=== PATIENT | female | born 1945 | race Two or more races ===

== ENCOUNTER 2025-04-19 11:09 | Inpatient (IN) | payer OTHER, MEDICAID ==
[~2025-04-19] VITALS: Ht 157.5 cm; Wt 75.4 kg
[~2025-04-19 11:09] MED LIST: ALPR0.5T10 PO; ASCO100T4; ASCO250T13 PO; BENA5TAB9 PO; CHOL400C7; DIGO0.1262 PO; MAGN400T28 PO; MEC25T PO; METF-371 PO; METO25TA36 PO; MULTTAB5 PO; OMEG-20 PO; RANI-347 PO; SIMV80TA17 PO; WARF5TAB PO
--- NOTE | 2025-04-19 11:26 | ECG ---
[facility] Test Date: 2025-04-19 Test Time: 11:21:33 Pat Name: DOTTY VÁSQUEZ Department: ER Room: 0295T Gender: F High Density Finishing Operator: OLI : 1945 Requested By: ELIZABETH FAJARDO Order Number: [id number] Reading MD: Tyrese Diaz Measurements Intervals [place] Rate: 99 P: 41 NE: 133 QRS: -38 QRSD: 112 T: 107 QT: 343 QTc: 441 Interpretive Statements Sinus rhythm Incomplete right bundle branch block Abnormal R-wave progression, late transition LVH with IVCD, LAD and secondary repol abnrm Electronically Signed On 04-21-2025 19:26:34 PDT by Tyrese Diaz Please click the below link to view image of tracing.
[2025-04-19] MEDS: NITROGLYCERIN 0.4 MG SL TAB SL ONE (11:31)
[2025-04-19 12:00] LABS: Nucleated Red Blood Cells % 0.0 %
[2025-04-19 12:02] LABS: Hematocrit 31.9 % (36.0-46.0); Hemoglobin 10.8 g/dL (12.2-16.2); Mean Corpuscular Hemoglobin 36.1 pg (28.0-32.0); Mean Corpuscular Volume 106.7 fL (80.0-100.0)
--- NOTE | 2025-04-19 12:18 | DVH ---
CT HEAD WITHOUT CONTRAST Indication: dizzy, htn EXAM DATE: 04/19/2025 11:46 AM COMPARISON: None TECHNIQUE: CT of the head without intravenous contrast. RADIATION DOSE: CTDIvol: 50.58 mGy, DLP: 811.0 mGy*cm FINDINGS: There is no intracranial hemorrhage. There is no extra-axial fluid, mass, mass effect or midline shif t. The ventricles are midline and normal in size. Basilar cisterns are patent. There are mild periven tricular and subcortical white matter chronic microvascular ischemic changes. The paranasal sinuses and mastoids are well-pneumatized. Imaged portion of the orbits are unremarkabl e. IMPRESSION: No intracranial hemorrhage or mass effect. Mild chronic microvascular ischemic changes.
[2025-04-19 12:19] LABS: Alanine Aminotransferase 22 U/L (7-40); Alkaline Phosphatase 71 U/L (46-116); Anion Gap 10 (5-15); BUN/Creatinine Ratio 15.0 (10.0-20.0); Blood Urea Nitrogen 22 mg/dL (9-23); Carbon Dioxide 27 mmol/L (20-31); Chloride 100 mmol/L (98-107); Sodium 137 mmol/L (136-145); Total Protein 7.3 g/dL (5.7-8.2)
[2025-04-19 12:20] LABS: Albumin 4.7 g/dL (3.2-4.8)
--- NOTE | 2025-04-19 12:20 | ED.PDOC ---
HPI (NEURO) HPI Comments Harris: dizzy. HPI: Poor Historian. Past Medical History: Past Surgical History: HPI: 80y F who presents to the ED for chief complaint of dizziness. - pt states she has been having since earlier this AM - pt states she has history of HTN and states she has not taken her medications today but states she did take her taking her medications for her breast cancer (Ibrance) - pt states she went to urgent care yesterday and was told to come to the ED for further evaluation of her dizziness and for possible evaluation for mets of her breast cancer - pt states in the ED, she did have history of meclizine but has prescription that has been 6 years ago - pt in the ED, otherwise denies headache and denies any other symptoms at this time -pt in the ED, is otherwise alert and oriented x 4 and able to answer all q uestions - pt in the ED, has noted BP of 196/86, RR 18, 02 sat of 97% on room air, heart rate 97 Past Medical History: HTN, breast and lung cancer, DM, vertigo, CKD, AFIB Past Surgical History: breast cancer surgery, cholecystectomy, Social History: Denies ETOH, smoking, and drug use. Medications: digoxin, xarelto, benzapril, ibrance, metformin Allergies: nkda REVIEW OF SYSTEMS: CONSTITUTIONAL: Denies acute: fever, diaphoresis, chills, generalized weakness. HEAD: Denies acute: headache, photophobia Eyes: Denies acute: Double vision, vision loss, eye pain, eye discharge. EARS: Denies acute: tinnitus, hearing loss, ear discharge, ear pain, THROAT: Denies acute: sore throat, swelling, difficulty swallowing , pain with swallowing, change in voice. NECK: Denies acute: neck pain, neck swelling, stiff neck. HEART: Denies acute : chest pain, palpitations, LUNGS: Denies acute: SOB, wheezing, cough, hemoptysis ABDOMEN: Denies acute: abdominal pain, Nausea, Vomiting, diarrhea, melena , hematemesis, hematochezia SKIN: Denies acute: rash, redness, lesions, itchiness. EXTREMITIES: Denies acute: calf pain, numbness, tingling, weakness, denies pain in extremity. Denies acute: Low back pain. Neuro: Denies acute: focal neurological deficit, motor or sensory focal neurological deficit, tremors, seizure like activity, confusion, change in mental status, loss of bowel or bladder function, cauda equina like symptoms. : Denies acute: dysuria, hematuria, flank pain, increase in urinary frequency. PSYCH: Denies acute: hallucination, suicidal ideation, homicidal ideation. FEMALE: Denies acute: abnormal vaginal bleeding, foul odor, unusual discharge. PHYSICAL EXAM: General: ----no----acute distress, awake and alert. Head: normocephalic, atraumatic. Neck: supple, trachea is midline, no swelling. Throat: Normal phonation. Eyes:, no erythema, no purulent discharge, no proptosis, no icterus. Heart: regular rate, regular rhythm, no significant murmur appreciated. Lungs: no apparent respiratory distress, Able to speak in full sentences. No wheezing, no rhonchi, no crackles. No stridors Clear to auscultation bilaterally. Abdomen: non tender to palpation, non distended, soft, no guarding, no rebound, + bowel sounds. Neuro: Awake, Alert, oriented to name, self, situation, follows commands GCS=15. Speech is normal. Skin: no petechia, no purpura, no cyanosis, non-pale, not jaundice. Lower extremities: --no - Pitting edema no deformity, no focal swelling, no calf TTP. Makes eye contact. moves all four extremities. Face: no apparent facial droop. Ambulating in the ED independently. PERRLA, EOM-I CN 2-12 are grossly intact, No nystagmus. ED COURSE: DISCLAIMER: This medical document was created using an electronic medical record system with voice recognition software and computerized dictation system. Although this document has been carefully reviewed, there might still be some phonetic and typ ographical errors. Occasional wrong-word or "sound-alike" substitutions may have occurred due to the inherent limitations of voice recognition software. These areas are purely typographical due to imperfections of the software programs and do not reflect any compromise in the patient's medical care. Please read the chart carefully and recognize, using context, where these substitutions have occurred. Chief Complaint: Dizziness Time Seen by MD: 11:25 Primary Care Provider: SANDRITA Reyes Notes: Nurses Notes Information Source: Patient Mode of Arrival: Ambulatory Past Medical History PAST MEDICAL HISTORY: AFIB, Arthritis, DM, High Lipids, HTN Surgical History: BTL, Cholecystectomy LINE PALLETIZER History: No Pertinent LINE PALLETIZER History Family History Family History: No family hx of DM, No family hx of Stroke Social History Smoker: Non-Smoker Alcohol: Denies ETOH Use Drugs: Denies Drug Use Lives In: Home Was a procedure done? Was a procedure done?: No X-Ray, Labs, Meds, VS Vital Signs Date Time Temp Pulse Resp B/P (MAP) Pulse Ox O2 Delivery O2 Flow Rate FiO2 04/19/25 15:27 98.8 77 18 164/84 (110) 98 98.8 04/19/25 15:27 77 18 98 Room Air* 0 21 04/19/25 15:09 164/84 04/19/25 11:31 196/86 04/19/25 11:21 99 04/19/25 11:19 98.3 97 18 196/86 (122) 97 98.3 Lab Test 04/19/25 14:19 04/19/25 12:48 04/19/25 12:33 04/19/25 11:37 Range/Units Lactic Acid Level 3.1 *H 4.7 *H 0.4-2.0 mmol/L Troponin I High Sensitivity 11 10 9 </=34 ng/L Urine Color Light-yellow Yellow Urine Clarity Clear Clear Urine pH 5.5 5.0-9.0 Urine Specific [place] 1.012 1.001-1.035 Urine Protein Negative Negative Urine Ketones Negative Negative Urine Blood 1+ H Negative /uL Urine Nitrite Negative Negative Urine Bilirubin Negative Negative Urine Urobilinogen Normal Negative mg/dL Urine Leukocyte Esterase 2+ Negative /uL Urine RBC 1 0 - 4 /hpf Urine Microscopic WBC 13 H 0-5 /HPF Urine Squamous Epithelial Cells Few <5 /hpf Urine Bacteria None seen None Seen /hpf Urine Hyaline Casts Few 0 - 2 /lpf Urine Glucose Normal Normal mg/dL White Blood Count 3.2 L 4.4-10.8 10^3/uL Red Blood Count 2.98 L 4.0-5.20 10^6/uL Hemoglobin 10.8 L 12.2-16.2 g/dL Hematocrit 31.9 L 36.0-46.0 % Mean Corpuscular Volume 106.7 H 80.0-100.0 fL Mean Corpuscular Hemoglobin 36.1 H 28.0-32.0 pg Mean Corpuscular Hemoglobin Concent 33.8 32.0-36.0 g/dL Red Cell Distribution Width 14.1 11.8-14.3 % Platelet Count 316 140-450 10^3/uL Mean Platelet Volume 7.6 6.9-10.8 fL Neutrophils (%) (Auto) 75.7 37.0-80.0 % Lymphocytes (%) (Auto) 18.6 10.0-50.0 % Monocytes (%) (Auto) 3.6 0.0-12.0 % Eosinophils (%) (Auto) 1.7 0.0-7.0 % Basophils (%) (Auto) 0.4 0.0-2.0 % Neutrophils # (Auto) 2.4 1.6-8.6 10 ^3/uL Lymphocytes # (Auto) 0.6 0.4-5.4 10 ^3/uL Monocytes # (Auto) 0.1 0-1.3 10 ^3/uL Eosinophils # (Auto) 0.1 0-0.8 10 ^3/uL Basophils # (Auto) 0 0-0.2 10 ^3/uL Nucleated Red Blood Cells 0.0 % Sodium Level 137 136-145 mmol/L Potassium Level 5.3 H 3.5-5.1 mmol/L Chloride Level 100 98-107 mmol/L Carbon Dioxide Level 27 20-31 mmol/L Anion Gap 10 5-15 Blood Urea Nitrogen 22 9-23 mg/dL Creatinine 1.47 H 0.550-1.02 mg/dL Glomerular Filtration Rate Calc 36 >90 mL/min BUN/Creatinine Ratio 15.0 10.0-20.0 Serum Glucose 214 H 74-106 mg/dL Hemoglobin A1c 7.2 H <5.7 % A1C Calcium Level 10.5 H 8.7-10.4 mg/dL Total Bilirubin 0.3 0.2-1.0 mg/dL Aspartate Amino Transferase (AST) 23 13-40 U/L Alanine Aminotransferase (ALT) 22 7-40 U/L Alkaline Phosphatase 71 46-116 U/L Total Protein 7.3 5.7-8.2 g/dL Albumin 4.7 3.2-4.8 g/dL Test 04/19/25 11:16 Range/Units POC Glucose 227 H 70-106 mg/dl Current Medications Medications (Trade) Dose Ordered Sig/No Route Start Time Stop Time Status Last Admin Nitroglycerin (Ntrostat Sublingual) 0.4 mg ONCE ONCE SL 04/19/25 11:30 04/19/25 11:31 DC 04/19/25 11:31 Sodium Chloride 1,000 ml @ 1,000 mls/hr Q1H ONCE IV 04/19/25 12:45 04/19/25 13:44 DC 04/19/25 14:24 Ceftriaxone Sodium 50 ml @ 100 mls/hr ONCE ONCE IV 04/19/25 13:30 04/19/25 13:59 DC 04/19/25 15:08 [place] [id number] Ph: [phone] DIAGNOSTIC IMAGING Diagnostic Imaging Report : [id number] Signed PATIENT: CORI RUTHCCT: [id number] UNIT: [id number] : 1945 LOC: ER ROOM / BED: / AGE / SEX: 80 / F ADM STATUS: REG ER SERVICE 26 ORDERING PHYSICIAN: SANDRITA KAMINSKI DO PROCEDURE(s): HWOCT - HEAD WITHOUT CONTRAST REASON: dizzy, htn ORDER NUMBER(s): [id number], ACCESSION NUMBER(s): [id number] CT HEAD WITHOUT CONTRAST Indication: dizzy, htn EXAM DATE: 04/19/2025 11:46 AM COMPARISON: None TECHNIQUE: CT of the head without intravenous contrast. RADIATION DOSE: CTDIvol: 50.58 mGy, DLP: 811.0 mGy*cm FINDINGS: There is no intracranial hemorrhage. There is no extra-axial fluid, mass, mass effect or midline shift. The ventricles are midline and normal in size. Basilar cisterns are patent. There are mild periventricular and subcortical white matter chronic microvascular ischemic changes. The paranasal sinuses and mastoids are well-pneumatized. Imaged portion of the orbits are unremarkable. IMPRESSION: No intracranial hemorrhage or mass effect. Mild chronic microvascular ischemic changes. ATED BY: BORIS ARANA MD DICTATED DATE/TIME: 04/19/25 1216 SIGNED BY: BORIS ARANA MD SIGNED DATE/TIME: 04/19/25 1216 CC: [place] [id number] Ph: [phone] DIAGNOSTIC IMAGING Diagnostic Imaging Report : [id number] Signed PATIENT: CORI RUTHCCT: [id number] UNIT: [id number] : 1945 LOC: ER ROOM / BED: / AGE / SEX: 80 / F ADM STATUS: REG ER SERVICE 24 ORDERING PHYSICIAN: SANDRITA KAMINSKI DO PROCEDURE(s): CXRP - CHEST PORTABLE REASON: dizzy ORDER NUMBER(s): [id number], ACCESSION NUMBER(s): [id number] CHEST RADIOGRAPH Indication: dizzy Technique: XY CHEST PORTABLE Comparison: None FINDINGS: The cardiac silhouette is unremarkable. The lungs demonstrate no pulmonary airspace consolidation. The pulmonary vasculature is unremarkable. There is no pleural effusion.. There is no pneumothorax. Aortic atherosclerotic disease. IMPRESSION: No pulmonary airspace consolidation. ATED BY: BORIS ARANA MD DICTATED DATE/TIME: 04/19/25 1235 SIGNED BY: BORIS ARANA MD SIGNED DATE/TIME: 04/19/25 1235 CC: Patient Education/Counseling: Diagnosis, Treatment Family Education/Counseling: No Family Present Departure 1 Departure Time of Disposition: 15:21 Impression: Primary Impression: Dizziness Additional Impressions: Elevated lactic acid level UTI (urinary tract infection) Disposition: ADMITTED INPATIENT Admit to: Tele Condition: Guarded Discharged With: Self Critical Care Note Critical Care Time?: No I personally scribed for SANDRITA KAMINSKI DO ([facility]) on 04/19/25 at 12:20. Electronically submitted by Abhishek Garcia (PREETHI). I personally scribed for SANDRITA KAMINSKI DO ([facility]) on 04/19/25 at 12:45. Electronically submitted by Abhishek Garcia (PREETHI). I personally scribed for SANDRITA KAMINSKI DO ([facility]) on 04/19/25 at 13:06. Electronically submitted by Abhishek Garcia (PREETHI). I personally scribed for SANDRITA KAMINSKI DO ([facility]) on 04/19/25 at 22:00. Electronically submitted by Abhishek Garcia (PREETHI). SANDRITA KAMINSKI DO Apr 19, 2025 12:20
[2025-04-19 12:28] LABS: Bilirubin, Total 0.3 mg/dL (0.2-1.0); Calcium 10.5 mg/dL (8.7-10.4); Glucose 214 mg/dL (74-106); Potassium 5.3 mmol/L (3.5-5.1)
[2025-04-19 12:34] LABS: Lactic Acid w/Reflex 4.7 mmol/L (0.4-2.0)
--- NOTE | 2025-04-19 12:37 | DVH ---
CHEST RADIOGRAPH Indication: dizzy Technique: XY CHEST PORTABLE Comparison: None FINDINGS: The cardiac silhouette is unremarkable. The lungs demonstrate no pulmonary airspace consolidation. Th e pulmonary vasculature is unremarkable. There is no pleural effusion.. There is no pneumothorax. Ao rtic atherosclerotic disease. IMPRESSION: No pulmonary airspace consolidation.
[2025-04-19 12:49] LABS: Urine Protein, UAD Negative (Negative)
[2025-04-19] MEDS: SODIUM CHLORIDE 0.9% 1,000 ML IV ONE (14:24)
[2025-04-19] MEDS: cefTRIAXone 1GM/50ML D5W 50 ML IV ONE (15:08)
[2025-04-19 15:27] VITALS: PULSE 77; RESP 18; O2SAT 98
[2025-04-19] MEDS ORDERED: ONDANSETRON HCL 4 MG/2 ML VIAL IV PRN (16:30)
[2025-04-19] MEDS ORDERED: DEXTROSE (50%) 50ML SYRG IV PRN (16:30)
[2025-04-19] MEDS: cefTRIAXone 1GM/50ML D5W 50 ML IV SCH (16:30)
--- NOTE | 2025-04-19 16:37 | DVHHP2 ---
History of Present Illness Reason for Visit: Dizziness History of Present Illness Carolyn Morales is a 72-year-old female with past medical history of hypertension, diabetes, breast and lung cancer, vertigo, CKD, AFib, palpitations, tinnitus, arthritis, hyperlipidemia, bilateral tubal ligation, and cholecystectomy who presents to the ED with dizziness that started 4 days ago. Patient's son Blu at the chair side. Patient reports that she went to the urgent care and they did not tell her that she had a urinary tract infection. Patient denies any recent trauma or injury, recent sick contacts, recent ingestion of spoiled food, recent travels, abdominal pain, nausea, vomiting, diarrhea, lightheadedness, weakness, chest pain, shortness of breath, fever, or chills. Cardiovascular: AFIB, HTN, hyperipidemia Renal/: Chronic renal insuff Endocrine: Diabetes Past Medical History Breast and lung cancer Vertigo Palpitations Tinnitus Arthritis Past Surgical History: Cholecystectomy, Tubal Ligation Family History: None Smoke: No ALCOHOL: none Drugs: None Lives: with Family Domestic Violence: Neg Review of Systems Constitutional: Yes: Other (Dizziness) Allergies: Coded Allergies: NO KNOWN ALLERGIES (Unverified , 12/25/10) Medications Current Medications Medications Dose Ordered Sig/No Route Start Time Stop Time Status Last Admin Dose Admin Ceftriaxone Sodium 50 ml @ 100 mls/hr DAILY@09 IV 04/19/25 16:30 UNV Sodium Chloride 1,000 ml @ 100 mls/hr Q10H IV 04/19/25 16:30 UNV Ondansetron HCl 4 mg Q4HP PRN IV 04/19/25 16:30 UNV Acetaminophen 650 mg Q6HP PRN PO 04/19/25 16:30 UNV Diagnostic Test (Pha) 1 strip ACHS 04/19/25 17:00 UNV Insulin Human Regular ACHS SC 04/19/25 17:00 UNV Dextrose 50 ml UD PRN IV 04/19/25 16:30 UNV Exam Vital Signs Vital Signs Date Time Temp Pulse Resp B/P (MAP) Pulse Ox O2 Delivery O2 Flow Rate FiO2 04/19/25 15:27 98.8 77 18 164/84 (110) 98 98.8 04/19/25 15:27 Room Air* 0 21 General Appearance: Alert, Oriented X3, Cooperative, No acute distress HEENT: Atraumatic, PERRLA, EOMI, Mucous membr. moist/pink Respiratory: Clear to auscultation, Normal air movement Cardiovascular: Regular rate, Normal S1, Normal S2, No murmurs Abdominal: Normal bowel sounds, Soft Extremities: No clubbing, No cyanosis, No edema, Normal pulses Skin: No rashes, No breakdown, No significant lesion Neuro: Normal gait, Normal speech, Strength at 5/5 X4 ext, Normal tone, S ensation intact Psych/Mental Status: Mental status NL, Mood NL Labs/Xrays Labs Test 04/19/25 14:19 04/19/25 12:33 04/19/25 11:37 04/19/25 11:16 Range/Units Lactic Acid Level 3.1 *H 0.4-2.0 mmol/L Troponin I High Sensitivity 11 </=34 ng/L Urine Color Light-yellow Yellow Urine Clarity Clear Clear Urine pH 5.5 5.0-9.0 Urine Specific [place] 1.012 1.001-1.035 Urine Protein Negative Negative Urine Ketones Negative Negative Urine Blood 1+ H Negative /uL Urine Nitrite Negative Negative Urine Bilirubin Negative Negative Urine Urobilinogen Normal Negative mg/dL Urine Leukocyte Esterase 2+ Negative /uL Urine RBC 1 0 - 4 /hpf Urine Microscopic WBC 13 H 0-5 /HPF Urine Squamous Epithelial Cells Few <5 /hpf Urine Bacteria None seen None Seen /hpf Urine Hyaline Casts Few 0 - 2 /lpf Urine Glucose Normal Normal mg/dL White Blood Count 3.2 L 4.4-10.8 10^3/uL Red Blood Count 2.98 L 4.0-5.20 10^6/uL Hemoglobin 10.8 L 12.2-16.2 g/dL Hematocrit 31.9 L 36.0-46.0 % Mean Corpuscular Volume 106.7 H 80.0-100.0 fL Mean Corpuscular Hemoglobin 36.1 H 28.0-32.0 pg Mean Corpuscular Hemoglobin Concent 33.8 32.0-36.0 g/dL Red Cell Distribution Width 14.1 11.8-14.3 % Platelet Count 316 140-450 10^3/uL Mean Platelet Volume 7.6 6.9-10.8 fL Neutrophils (%) (Auto) 75.7 37.0-80.0 % Lymphocytes (%) (Auto) 18.6 10.0-50.0 % Monocytes (%) (Auto) 3.6 0.0-12.0 % Eosinophils (%) (Auto) 1.7 0.0-7.0 % Basophils (%) (Auto) 0.4 0.0-2.0 % Neutrophils # (Auto) 2.4 1.6-8.6 10 ^3/uL Lymphocytes # (Auto) 0.6 0.4-5.4 10 ^3/uL Monocytes # (Auto) 0.1 0-1.3 10 ^3/uL Eosinophils # (Auto) 0.1 0-0.8 10 ^3/uL Basophils # (Auto) 0 0-0.2 10 ^3/uL Nucleated Red Blood Cells 0.0 % Sodium Level 137 136-145 mmol/L Potassium Level 5.3 H 3.5-5.1 mmol/L Chloride Level 100 98-107 mmol/L Carbon Dioxide Level 27 20-31 mmol/L Anion Gap 10 5-15 Blood Urea Nitrogen 22 9-23 mg/dL Creatinine 1.47 H 0.550-1.02 mg/dL Glomerular Filtration Rate Calc 36 >90 mL/min BUN/Creatinine Ratio 15.0 10.0-20.0 Serum Glucose 214 H 74-106 mg/dL Calcium Level 10.5 H 8.7-10.4 mg/dL Total Bilirubin 0.3 0.2-1.0 mg/dL Aspartate Amino Transferase (AST) 23 13-40 U/L Alanine Aminotransferase (ALT) 22 7-40 U/L Alkaline Phosphatase 71 46-116 U/L Total Protein 7.3 5.7-8.2 g/dL Albumin 4.7 3.2-4.8 g/dL POC Glucose 227 H 70-106 mg/dl CT HEAD WITHOUT CONTRAST Indication: dizzy, htn EXAM DATE: 04/19/2025 11:46 AM COMPARISON: None TECHNIQUE: CT of the head without intravenous contrast. RADIATION DOSE: CTDIvol: 50.58 mGy, DLP: 811.0 mGy*cm FINDINGS: There is no intracranial hemorrhage. There is no extra-axial fluid, mass, mass effect or midline shift. The ventricles are midline and normal in size. Basilar cisterns are patent. There are mild periventricular and subcortical white matter chronic microvascular ischemic changes. The paranasal sinuses and mastoids are well-pneumatized. Imaged portion of the orbits are unremarkable. IMPRESSION: No intracranial hemorrhage or mass effect. Mild chronic microvascular ischemic changes. CHEST RADIOGRAPH Indication: dizzy Technique: XY CHEST PORTABLE Comparison: None FINDINGS: The cardiac silhouette is unremarkable. The lungs demonstrate no pulmonary airspace consolidation. The pulmonary vasculature is unremarkable. There is no pleural effusion.. There is no pneumothorax. Aortic atherosclerotic disease. IMPRESSION: No pulmonary airspace consolidation. SEPSIS Sepsis Screen Date sepsis recognized/suspect: Apr 19, 2025 Time Sepsis recognized/suspect: 1114 Recent Procedure: No On Antibiotic Therapy: No Respiratory Rate >20: No Heart Rate >90: Yes Temp<36 C (96.8 F) or >38.3 C: No SBP <90 or MAP <65 mmHG: No New Acute Mental Status Change: No Is the patient on CPAP, BIPAP,: No Physician Orders Director Of Land Acquisition (04/19/25 ) Orthostatic Vital Signs (04/19/25 ) Chest Portable (04/19/25 11:25) Head Without Contrast (04/19/25 11:27) Ceftriaxone 1gm/50ml D5w (Rocephin) (04/19/25 16:30) Sodium Chloride 0.9% (04/19/25 16:30) Admit (04/19/25 16:21) Allergies (04/19/25 16:21) Code Status (04/19/25 16:21) Ondansetron Hcl (Zofran) (04/19/25 16:30) Complete Blood Count (04/20/25 04:00) Comprehensive Metabolic Panel (04/20/25 04:00) Cardiac Diet-2gna,Lofat,Lochol (04/19/25 Dinner) Acetaminophen Tablet (Tylenol Tablet) (04/19/25 16:30) Glucose Blood (Accu-Chek Comfort Curve T (04/19/25 17:00) Insulin R (Human) (Insulin R) (04/19/25 17:00) Dextrose 50% Syringe (04/19/25 16:30) Hemoglobin A1c (04/19/25 16:21) Sodium Zirconium Cyclosilicate (Lokelma) (04/19/25 16:30) Digoxin Tablet (Lanoxin Tablet) (04/22/25 12:00) Magnesium Oxide Tablet (Mag-Ox Tablet) (04/20/25 10:00) Multiple Vitamin W Mineral Tab (Mvi W/ M (04/20/25 10:00) Warfarin Sodium (Coumadin) (04/20/25 10:00) (Nf) Alprazolam (Alprazolam Er) (04/20/25 10:00) (Nf) Ascorbic Acid (Vit C) (04/20/25 10:00) (Nf) Benazepril Hcl (04/20/25 10:00) (Nf) Metoprolol Succinate (Toprol Xl) (04/20/25 10:00) (Nf) [place]-3 Fatty Acids (Fish Oil) (04/20/25 10:00) (Nf) Ranitidine Hcl (Acid Control Maximu (04/19/25 22:00) (Nf) Simvastatin (04/19/25 22:00) Vital Signs Date Time Temp Pulse Resp B/P (MAP) Pulse Ox O2 Delivery O2 Flow Rate FiO2 04/19/25 15:27 98.8 77 18 164/84 (110) 98 98.8 04/19/25 15:27 77 18 98 Room Air* 0 21 04/19/25 15:09 164/84 04/19/25 11:31 196/86 04/19/25 11:21 99 04/19/25 11:19 98.3 97 18 196/86 (122) 97 98.3 Laboratory Tests Test 04/19/25 11:37 04/19/25 14:19 Lactic Acid Level 4.7 mmol/L (0.4-2.0) *H 3.1 mmol/L (0.4-2.0) *H White Blood Count 3.2 10^3/uL (4.4-10.8) L Medications Medications Dose Ordered Sig/No Route Start Time Stop Time Status Last Admin Dose Admin Ceftriaxone Sodium 50 ml @ 100 mls/hr ONCE ONCE IV 04/19/25 13:30 04/19/25 13:59 DC 04/19/25 15:08 100 MLS/HR Nitroglycerin 0.4 mg ONCE ONCE SL 04/19/25 11:30 04/19/25 11:31 DC 04/19/25 11:31 0.4 MG Sodium Chloride 1,000 ml @ 1,000 mls/hr Q1H ONCE IV 04/19/25 12:45 04/19/25 13:44 DC 04/19/25 14:24 1,000 MLS/HR Assessment/Plan Assessment/Plan Assessment Autonomic imbalance likely due to UTI Hyperkalemia Lactic acidosis rule out sepsis Hypertensive urgency Anemia Diabetes type 2 with hyperglycemia History of hypertension History of breast and lung cancer History of vertigo History of CKD History of AFib History of palpitations History of tinnitus History of arthritis History of hyperlipidemia History of bilateral tubal ligation History of cholecystectomy Plan Admit to tele [facility] Trend lactic level Nitro given in ED IV antibiotics-ceftriaxone Antiemetics Pain management CT head noted Troponin noted negative x3 Chest x-ray noted UA Orthostatics EKG Hemoglobin A1c ISS and Accu-Cheks Echo ordered Last echo on 05/28/2013 EF 60% Diet IV fluids Home medications reconciled-patient on warfarin DVT prophylaxis-not indicated patient ambulating PUD prophylaxis-not indicated no history of GERD or GI bleed Discussed plan of care with patient, patient's son, and nurse [id number] Preventive counseling healthy eating habits, physical activity, and regular checkups Plan discussed with: Patient, Son My Orders Orders - ROME VIVAS [employer]ARD[employer] SUPERVISOR Procedure Category Date Status Time Ceftriaxone 1gm/50ml PHA 04/19/25 Logged D5w (Rocephin) 16:30 Sodium Chloride 0.9% PHA 04/19/25 Logged 16:30 Admit ADMIT 04/19/25 Transmitted 16:21 Allergies FAHEEM 04/19/25 In Process 16:21 Code Status CODE 04/19/25 Transmitted 16:21 Ondansetron Hcl PHA 04/19/25 Logged (Zofran) 16:30 Complete Blood Count LAB 04/20/25 Verified 04:00 Comprehensive LAB 04/20/25 Verified Metabolic Panel 04:00 Cardiac DIET 04/19/25 Transmitted Diet-2gna,Lofat,Lochol Dinner Acetaminophen Tablet PHA 04/19/25 Logged (Tylenol Tablet) 16:30 Glucose Blood PHA 04/19/25 Logged (Accu-Chek Comfort 17:00 Insulin R (Human) PHA 04/19/25 Logged (Insulin R) 17:00 Dextrose 50% Syringe PHA 04/19/25 Logged 16:30 Hemoglobin A1c LAB 04/19/25 Logged 16:21 Sodium Zirconium PHA 04/19/25 Logged Cyclosilicate 16:30 Digoxin Tablet PHA 04/22/25 Transmitted (Lanoxin Tablet) 12:00 Magnesium Oxide PHA 04/20/25 Transmitted Tablet (Mag-Ox Tablet) 10:00 Multiple Vitamin W PHA 04/20/25 Transmitted Mineral Tab (Mvi W/ M 10:00 Warfarin Sodium PHA 04/20/25 Verified (Coumadin) 10:00 (Nf) Alprazolam PHA 04/20/25 Verified (Alprazolam Er) 10:00 (Nf) Ascorbic Acid PHA 04/20/25 Verified (Vit C) 10:00 (Nf) Benazepril Hcl PHA 04/20/25 Verified 10:00 (Nf) Metoprolol PHA 04/20/25 Verified Succinate (Toprol Xl) 10:00 (Nf) [place]-3 Fatty PHA 04/20/25 Verified Acids (Fish Oil) 10:00 (Nf) Ranitidine Hcl PHA 04/19/25 Verified (Acid Control Maximu 22:00 (Nf) Simvastatin PHA 04/19/25 Verified 22:00 Date of Service: Apr 19, 2025 Billing Provider: ROME VIVAS Common Visit Codes: [id number] INP/OBS CARE (HIGH) Secondary Visit Codes: [id number] COUNSELING IND ROME VIVAS Apr 19, 2025 16:36
[2025-04-19] MEDS: DIGOXIN 0.125 MG TAB PO SCH (16:41)
[2025-04-19] MEDS: SODIUM ZIRCONIUM CYCL 10 GM PAK PO ONE (17:59)
[2025-04-19] MEDS: SODIUM CHLORIDE 0.9% 1,000 ML IV SCH (17:59)
[2025-04-19] MEDS: ACCU-CHEK COMFORT CURVE STRIP VI SCH (18:02)
[2025-04-19] MEDS ORDERED: METOPROLOL SUCCINATE XL 50 MG TAB PO SCH (18:07)
[2025-04-19] MEDS: hydrALAZINE HCL 20 MG/ML VL IV PRN (18:20)
[2025-04-19] MEDS: InsuLIN REG 1unit/0.01ml Soln (100units/ml) SC SCH (18:20)
[2025-04-19] MEDS ORDERED: AMIT-400 PO (18:43)
[2025-04-19] MEDS ORDERED: RIVA20TA PO (18:43)
[2025-04-19] MEDS ORDERED: AMIT25TA20 PO (18:43)
[2025-04-19] MEDS ORDERED: LETR2.5T PO (18:43)
[2025-04-19] MEDS ORDERED: PIOG15TA25 PO (18:43)
[2025-04-19] MEDS ORDERED: FOLI-119 PO (18:43)
[2025-04-19] MEDS: RIVAROXABAN 20 MG TAB PO SCH (18:46)
[2025-04-19 18:49] VITALS: BP 170/75; PULSE 81; RESP 16; TEMP 98.6; O2SAT 97
[2025-04-19 20:00] VITALS: PULSE 90
[2025-04-19 21:00] VITALS: BP 168/75; PULSE 91; RESP 14; TEMP 98.1; O2SAT 96
[2025-04-19] MEDS ORDERED: MET25T PO (21:09)
[2025-04-19] MEDS: ATORVASTATIN 20 MG TAB PO SCH (21:44)
[2025-04-19] MEDS ORDERED: RANITIDINE HCL 150 MG PO SCH (22:00)
[2025-04-20] VITALS (9 sets, daily range): BP systolic 130–163; BP diastolic 54–78; PULSE 77–88; RESP 14–20; TEMP 97.8–98.9; O2SAT 93–98
[2025-04-20] MEDS: ACETAMINOPHEN 325 MG TAB PO PRN (00:45)
[2025-04-20 05:46] LABS: Hematocrit 29.9 % (36.0-46.0); Hemoglobin 10.4 g/dL (12.2-16.2); Mean Corpuscular Hemoglobin 36.8 pg (28.0-32.0); Mean Corpuscular Volume 105.9 fL (80.0-100.0); Nucleated Red Blood Cells % 0.1 %
[2025-04-20 06:00] LABS: Alanine Aminotransferase 17 U/L (7-40); Albumin 4.3 g/dL (3.2-4.8); Alkaline Phosphatase 62 U/L (46-116); Anion Gap 10 (5-15); BUN/Creatinine Ratio 12.7 (10.0-20.0); Bilirubin, Total 0.3 mg/dL (0.2-1.0); Blood Urea Nitrogen 15 mg/dL (9-23); Calcium 10.4 mg/dL (8.7-10.4); Carbon Dioxide 28 mmol/L (20-31); Chloride 101 mmol/L (98-107); Potassium 4.1 mmol/L (3.5-5.1); Sodium 139 mmol/L (136-145); Total Protein 7.0 g/dL (5.7-8.2)
[2025-04-20 06:12] LABS: Glucose 133 mg/dL (74-106); Magnesium 1.4 mg/dL (1.6-2.6)
[2025-04-20] MEDS: METOPROLOL TARTRATE 25 MG TAB PO ONE (06:22)
[2025-04-20] MEDS: hydrALAZINE HCL 20 MG/ML VL IV ONE (06:23)
[2025-04-20] MEDS: MULTIPLE VITAMINS W/ MINERALS TAB PO SCH (08:34)
[2025-04-20] MEDS: MAGNESIUM OXIDE 400 MG TAB PO SCH (08:35)
[2025-04-20] MEDS: ASCORBIC ACID 500 MG TAB PO SCH (08:35)
[2025-04-20] MEDS: BENAZEPRIL HCL 10 MG TAB PO SCH (08:36)
[2025-04-20] MEDS: FATTY ACIDS PO SCH (08:37)
[2025-04-20] MEDS: OMEGA PO SCH (08:37)
[2025-04-20] MEDS ORDERED: ALPRAZolam 0.5 MG TAB PO SCH (10:00)
--- NOTE | 2025-04-20 13:31 | DVHSR ---
APPROVED REPORT EXAM: Two-dimensional and M-mode echocardiogram with Doppler and color Doppler. Blood Pressure: 159/76 mmHg INDICATION Dizziness RISK FACTORS Height: 5'2", Weight: 160 DIMENSIONS LVDd2.8 (3.8-5.7cm)LA (2D)3.2 (1.9-4.0cm)Aortic Root2.9 (2.0-3.7cm) LVDs2.0 (2.5-4.0cm)LA (MM) (1.9-4.0cm)Aortic Cusp Exc1.8 (1.5-2.0cm) EF (%) 60.0 (55-70%)Rt. Atrium3.5 (1.9-4.0cm)Asc. Aorta cm IVSd1.1 (0.7-1.1cm)RV (D) (1.8-2.4cm) PWd1.2 (0.7-1.1cm) Mitral Valve MitralMitral Stenosis E wave0.94m/sMV Mean GR.mmHg A wave1.56m/sMV Peak GR.mmHg E/A ratio0.62D MVAcm2 DECEL [id number] 1/2 Timems Aortic Valve Aortic ValveAortic Stenosis V11.60m/Thuy Mean GR.5mmHg V21.66m/Thuy Peak GR.11mmHg LVOT Diameter1.8 (1.8-2.4cm)Doppler AVA2.45cm2 Pulmonic Valve V21.57m/s Tricuspid Valve TR Velocity2.51m/s [id number] Other Information Technically limited study due to body habitus. Conclusion Left ventricle: Mild concentric left ventricular hypertrophy was seen. LVEF was 65%. There was no gross wall motion abnormality. Abnormal relaxation of left ventricular diastolic function was observ ed. Right ventricle was normal-sized. Mild left atrial enlargement was seen. Right atrium was normal-si zed. Aortic valve was trileaflet. There was no aortic insufficiency/stenosis. There was mild mitral cassidy lar calcification. There was mild mitral regurgitation. There was trace tricuspid regurgitation. T here was trace pulmonary valve insufficiency. Right ventricular systolic pressure was normal at 33 mm Hg. There was no pericardial effusion
--- NOTE | 2025-04-20 14:59 | DVHPN2 ---
Subjective The patient is seen and examined at bedside. Still complain of dizziness and tired. Reviewed: Care Plan, H&P, Labs, Medications, Previous Orders, Radiology Changes from previous H/P or p: No Changes Objective Vitals Vital Signs Date Time Temp Pulse Resp B/P (MAP) Pulse Ox O2 Delivery O2 Flow Rate FiO2 04/20/25 13:00 98.9 84 20 135/60 (85) 95 98.9 04/20/25 08:00 Room Air* 0 21 Intake/Output Intake and Output 04/20/25 07:00 Intake Total 1550 ml Balance 1550 ml Intake Oral 500 ml IV Total 1050 ml # Voids 8 General Appearance: Alert, Oriented X3, Cooperative, No acute distress HEENT: Atraumatic, PERRLA, EOMI, Mucous membr. moist/pink Neck: Supple Lungs: Clear to auscultation, Normal air movement Cardiovascular: Regular rate, Normal S1, Normal S2, No murmurs, Gallops, Rubs Abdomen: Normal bowel sounds, Soft, No tenderness Neuro: Cranial nerves 3-12 NL Psych/Mental Status: Mental status NL Medications Current Medications Medications Dose Ordered Sig/No Route Start Time Stop Time Status Last Admin Dose Admin Ceftriaxone Sodium 50 ml @ 100 mls/hr DAILY@09 IV 04/19/25 16:30 04/20/25 08:34 100 MLS/HR Sodium Chloride 1,000 ml @ 100 mls/hr Q10H IV 04/19/25 16:30 04/19/25 17:59 100 MLS/HR Ondansetron HCl 4 mg Q4HP PRN IV 04/19/25 16:30 Acetaminophen 650 mg Q6HP PRN PO 04/19/25 16:30 04/20/25 00:45 650 MG Diagnostic Test (Pha) 1 strip ACHS 04/19/25 17:00 04/20/25 11:55 1 STRIP Insulin Human Regular ACHS SC 04/19/25 17:00 04/20/25 11:54 4 UNITS Dextrose 50 ml UD PRN IV 04/19/25 16:30 Digoxin 0.125 mg 2XW PO 04/19/25 16:41 Hold Magnesium Oxide 400 mg DAILY PO 04/20/25 10:00 04/20/25 08:35 400 MG Multivitamins/ Minerals 1 tab DAILY PO 04/20/25 10:00 04/20/25 08:34 1 TAB Alprazolam 0.5 mg DAILY PO 04/20/25 10:00 Hold Ascorbic Acid 1,000 mg DAILY PO 04/20/25 10:00 04/20/25 08:35 1,000 MG Benazepril HCl 5 mg DAILY PO 04/20/25 10:00 04/20/25 08:36 5 MG Metoprolol Succinate 25 mg DAILY PO 04/19/25 18:07 Hold Patient Own Medication 1,400 mg DAILY PO 04/20/25 10:00 Patient Own Medication 150 mg BID PO 04/19/25 22:00 Hold Atorvastatin Calcium 10 mg HS PO 04/19/25 22:00 04/19/25 21:44 10 MG Hydralazine HCl 10 mg Q6HP PRN IV 04/19/25 16:45 04/20/25 01:02 10 MG Rivaroxaban 20 mg DAILY PO 04/19/25 18:28 04/20/25 08:34 20 MG Laboratory Results Laboratory Tests 04/20/25 05:12 Chemistry Test 04/20/25 05:12 Albumin 4.3 g/dL (3.2-4.8) Calcium Level 10.4 mg/dL (8.7-10.4) Magnesium Level 1.4 mg/dL (1.6-2.6) L Total Protein 7.0 g/dL (5.7-8.2) LFT Test 04/20/25 05:12 Alanine Aminotransferase (ALT) 17 U/L (7-40) Alkaline Phosphatase 62 U/L (46-116) Aspartate Amino Transferase (AST) 21 U/L (13-40) Total Bilirubin 0.3 mg/dL (0.2-1.0) Urinalysis Test 04/19/25 12:33 Urine Color Light-yellow (Yellow) Urine Clarity Clear (Clear) Urine pH 5.5 (5.0-9.0) Urine Specific [place] 1.012 (1.001-1.035) Urine Protein Negative (Negative) Urine Ketones Negative (Negative) Urine Blood 1+ /uL (Negative) H Urine Nitrite Negative (Negative) Urine Bilirubin Negative (Negative) Urine Urobilinogen Normal mg/dL (Negative) Urine Leukocyte Esterase 2+ /uL (Negative) Urine RBC 1 /hpf (0 - 4) Urine Microscopic WBC 13 /HPF (0-5) H Urine Squamous Epithelial Cells Few /hpf (<5) Urine Bacteria None seen /hpf (None Seen) Urine Hyaline Casts Few /lpf (0 - 2) Urine Glucose Normal mg/dL (Normal) Labs and/or images reviewed: Labs reviewed by me Assessment/Plan Assessment/Plan Autonomic imbalance likely due to UTI Hyperkalemia Lactic acidosis rule out sepsis Hypertensive urgency Anemia Diabetes type 2 with hyperglycemia Hypertension History of breast and lung cancer History of vertigo CKD AFib History of palpitations History of tinnitus History of arthritis Hyperlipidemia History of bilateral tubal ligation History of cholecystectomy Continuing current management. Continuing with IV antibiotic Rocephin. We will follow up with electrolytes. Patient received one dose of lokema Continuing with sliding scale insulin. Encouraged the patient to be out of bed and ambulate. Meclizine as needed for dizziness and vertigo This medical document was created using an electronic medical record system with [employer] direct computerized dictation system. Although this document has been carefully reviewed, there may still be some phonetic and typographical errors. These areas are purely typographical due to imperfections of the software programs, and do not reflect any compromise in the patient's medical care. Plan discussed with: Patient Date of Service: Apr 20, 2025 Billing Provider: WILLIAM MCFADDEN MD Common Visit Codes: [id number] INP/OBS CARE(HIGH) WILLIAM MCFADDEN MD Apr 20, 2025 14:59
[2025-04-20] MEDS: MECLIZINE HCL 25 MG TAB PO PRN (16:34)
[2025-04-20] MEDS: MAGNESIUM SULFATE 1GM/100ML 100 ML IV SCH (18:17)
[2025-04-21] VITALS (8 sets, daily range): BP systolic 112–146; BP diastolic 65–84; PULSE 77–91; RESP 16–71; TEMP 97.7–98.7; O2SAT 94–96
[2025-04-21] MEDS: PALBOCICLIB 75 MG PO SCH (10:34)
[2025-04-21] MEDS: LETROZOLE 2.5 MG TABLETS PO SCH (10:35)
--- NOTE | 2025-04-21 12:04 | DVHPN2 ---
Subjective The patient is seen and examined at bedside. Patient feel better. Reviewed: Care Plan, H&P, Labs, Medications, Previous Orders, Radiology Changes from previous H/P or p: No Changes Objective Vitals Vital Signs Date Time Temp Pulse Resp B/P (MAP) Pulse Ox O2 Delivery O2 Flow Rate FiO2 04/21/25 09:00 97.7 86 16 146/73 (97) 94 97.7 04/21/25 08:00 Room Air* 0 21 Intake/Output Intake and Output 04/21/25 07:00 Intake Total 2620 ml Balance 2620 ml Intake Oral 2470 ml IV Total 150 ml # Voids 10 # Bowel Movements 3 General Appearance: Alert, Oriented X3, Cooperative, No acute distress HEENT: Atraumatic, PERRLA, EOMI, Mucous membr. moist/pink Neck: Supple Lungs: Clear to auscultation, Normal air movement Cardiovascular: Regular rate, Normal S1, Normal S2, No murmurs, Gallops, Rubs Neuro: Cranial nerves 3-12 NL Psych/Mental Status: Mental status NL Medications Current Medications Medications Dose Ordered Sig/No Route Start Time Stop Time Status Last Admin Dose Admin Ceftriaxone Sodium 50 ml @ 100 mls/hr DAILY@09 IV 04/19/25 16:30 04/21/25 08:39 100 MLS/HR Sodium Chloride 1,000 ml @ 100 mls/hr Q10H IV 04/19/25 16:30 04/19/25 17:59 100 MLS/HR Ondansetron HCl 4 mg Q4HP PRN IV 04/19/25 16:30 Acetaminophen 650 mg Q6HP PRN PO 04/19/25 16:30 04/20/25 00:45 650 MG Diagnostic Test (Pha) 1 strip ACHS 04/19/25 17:00 04/21/25 06:04 1 STRIP Insulin Human Regular ACHS SC 04/19/25 17:00 04/21/25 06:06 2 UNITS Dextrose 50 ml UD PRN IV 04/19/25 16:30 Digoxin 0.125 mg 2XW PO 04/19/25 16:41 Hold Magnesium Oxide 400 mg DAILY PO 04/20/25 10:00 04/21/25 08:37 400 MG Multivitamins/ Minerals 1 tab DAILY PO 04/20/25 10:00 04/21/25 08:37 1 TAB Alprazolam 0.5 mg DAILY PO 04/20/25 10:00 Hold Ascorbic Acid 1,000 mg DAILY PO 04/20/25 10:00 04/21/25 08:38 1,000 MG Benazepril HCl 5 mg DAILY PO 04/20/25 10:00 04/21/25 08:39 5 MG Metoprolol Succinate 25 mg DAILY PO 04/19/25 18:07 Hold Patient Own Medication 1,400 mg DAILY PO 04/20/25 10:00 Patient Own Medication 150 mg BID PO 04/19/25 22:00 Hold Atorvastatin Calcium 10 mg HS PO 04/19/25 22:00 04/20/25 21:05 10 MG Hydralazine HCl 10 mg Q6HP PRN IV 04/19/25 16:45 04/20/25 01:02 10 MG Rivaroxaban 20 mg DAILY PO 04/19/25 18:28 04/21/25 08:38 20 MG Meclizine HCl 25 mg Q8HPRN PRN PO 04/20/25 16:15 04/21/25 08:38 25 MG Patient Own Medication 1 DAILY PO 04/21/25 10:00 04/21/25 10:35 1 Patient Own Medication 1 DAILY PO 04/21/25 10:00 04/21/25 10:34 1 Laboratory Results Laboratory Tests 04/20/25 05:12 Urinalysis Test 04/19/25 12:33 Urine Color Light-yellow (Yellow) Urine Clarity Clear (Clear) Urine pH 5.5 (5.0-9.0) Urine Specific [place] 1.012 (1.001-1.035) Urine Protein Negative (Negative) Urine Ketones Negative (Negative) Urine Blood 1+ /uL (Negative) H Urine Nitrite Negative (Negative) Urine Bilirubin Negative (Negative) Urine Urobilinogen Normal mg/dL (Negative) Urine Leukocyte Esterase 2+ /uL (Negative) Urine RBC 1 /hpf (0 - 4) Urine Microscopic WBC 13 /HPF (0-5) H Urine Squamous Epithelial Cells Few /hpf (<5) Urine Bacteria None seen /hpf (None Seen) Urine Hyaline Casts Few /lpf (0 - 2) Urine Glucose Normal mg/dL (Normal) Labs and/or images reviewed: Labs reviewed by me Assessment/Plan Assessment/Plan Autonomic imbalance likely due to UTI Hyperkalemia Lactic acidosis rule out sepsis Hypertensive urgency Anemia Diabetes type 2 with hyperglycemia Hypertension History of breast and lung cancer History of vertigo CKD AFib History of palpitations History of tinnitus History of arthritis Hyperlipidemia History of bilateral tubal ligation History of cholecystectomy Continuing current management. Continuing with IV antibiotic Rocephin. We will follow up with electrolytes. Patient received one dose of lokema Continuing with sliding scale insulin. Encouraged the patient to be out of bed and ambulate. Meclizine as needed for dizziness and vertigo This medical document was created using an electronic medical record system with [employer] computerized dictation system. Although this document has been carefully reviewed, there may still be some phonetic and typographical errors. These areas are purely typographical due to imperfections of the software programs, and do not reflect any compromise in the patient's medical care. Plan discussed with: Patient, Daughter My Orders Orders - WILLIAM MCFADDEN MD Procedure Category Date Status Time Meclizine Tablet PHA 04/20/25 In Process (Antivert Tablet) 16:15 * Neurology Consult CONS 04/20/25 Transmitted 16:11 Patients Own PHA 04/21/25 In Process Medication 10:00 Patients Own PHA 04/21/25 In Process Medication 10:00 Date of Service: Apr 21, 2025 Billing Provider: WILLIAM MCFADDEN MD Common Visit Codes: [id number] INP/OBS CARE(HIGH) WILLIAM MCFADDEN MD Apr 21, 2025 12:04
[2025-04-22] VITALS (8 sets, daily range): BP systolic 100–149; BP diastolic 66–98; PULSE 77–89; RESP 16–20; TEMP 98.2–98.8; O2SAT 95–99
[2025-04-22] MEDS ORDERED: LEVO500T91 PO (12:22)
--- NOTE | 2025-04-22 12:24 | DVHDS2 ---
Discharge Summary Date of Admission Apr 19, 2025 at 16:21 Date of Discharge: Apr 22, 2025 Admitting Diagnosis Autonomic imbalance likely due to UTI Hyperkalemia Lactic acidosis rule out sepsis Hypertensive urgency Anemia Diabetes type 2 with hyperglycemia Hypertension History of breast and lung cancer History of vertigo CKD AFib History of palpitations History of tinnitus History of arthritis Hyperlipidemia History of bilateral tubal ligation History of cholecystectomy Labs/Diagnostic Data: Laboratory Results Test 04/22/25 11:24 04/20/25 05:12 04/19/25 14:19 04/19/25 12:33 POC Glucose 198 mg/dl (70-106) White Blood Count 3.2 10^3/uL (4.4-10.8) Red Blood Count 2.82 10^6/uL (4.0-5.20) Hemoglobin 10.4 g/dL (12.2-16.2) Hematocrit 29.9 % (36.0-46.0) Mean Corpuscular Volume 105.9 fL (80.0-100.0) Mean Corpuscular Hemoglobin 36.8 pg (28.0-32.0) Mean Corpuscular Hemoglobin Concent 34.7 g/dL (32.0-36.0) Red Cell Distribution Width 13.9 % (11.8-14.3) Platelet Count 286 10^3/uL (140-450) Mean Platelet Volume 7.4 fL (6.9-10.8) Neutrophils (%) (Auto) 62.9 % (37.0-80.0) Lymphocytes (%) (Auto) 27.1 % (10.0-50.0) Monocytes (%) (Auto) 6.0 % (0.0-12.0) Eosinophils (%) (Auto) 3.2 % (0.0-7.0) Basophils (%) (Auto) 0.8 % (0.0-2.0) Neutrophils # (Auto) 2.0 10 ^3/uL (1.6-8.6) Lymphocytes # (Auto) 0.9 10 ^3/uL (0.4-5.4) Monocytes # (Auto) 0.2 10 ^3/uL (0-1.3) Eosinophils # (Auto) 0.1 10 ^3/uL (0-0.8) Basophils # (Auto) 0 10 ^3/uL (0-0.2) Nucleated Red Blood Cells 0.1 % Sodium Level 139 mmol/L (136-145) Potassium Level 4.1 mmol/L (3.5-5.1) Chloride Level 101 mmol/L (98-107) Carbon Dioxide Level 28 mmol/L (20-31) Anion Gap 10 (5-15) Blood Urea Nitrogen 15 mg/dL (9-23) Creatinine 1.18 mg/dL (0.550-1.02) Glomerular Filtration Rate Calc 47 mL/min (>90) BUN/Creatinine Ratio 12.7 (10.0-20.0) Serum Glucose 133 mg/dL (74-106) Calcium Level 10.4 mg/dL (8.7-10.4) Magnesium Level 1.4 mg/dL (1.6-2.6) Total Bilirubin 0.3 mg/dL (0.2-1.0) Aspartate Amino Transferase (AST) 21 U/L (13-40) Alanine Aminotransferase (ALT) 17 U/L (7-40) Alkaline Phosphatase 62 U/L (46-116) Total Protein 7.0 g/dL (5.7-8.2) Albumin 4.3 g/dL (3.2-4.8) Lactic Acid Level 3.1 mmol/L (0.4-2.0) Troponin I High Sensitivity 11 ng/L (</=34) Urine Color Light-yellow (Yellow) Urine Clarity Clear (Clear) Urine pH 5.5 (5.0-9.0) Urine Specific [place] 1.012 (1.001-1.035) Urine Protein Negative (Negative) Urine Ketones Negative (Negative) Urine Blood 1+ /uL (Negative) Urine Nitrite Negative (Negative) Urine Bilirubin Negative (Negative) Urine Urobilinogen Normal mg/dL (Negative) Urine Leukocyte Esterase 2+ /uL (Negative) Urine RBC 1 /hpf (0 - 4) Urine Microscopic WBC 13 /HPF (0-5) Urine Squamous Epithelial Cells Few /hpf (<5) Urine Bacteria None seen /hpf (None Seen) Urine Hyaline Casts Few /lpf (0 - 2) Urine Glucose Normal mg/dL (Normal) Test 04/19/25 11:37 Hemoglobin A1c 7.2 % A1C (<5.7) Other Laboratory Tests 04/20/25 05:12 Brief Hx & Hospital Course: This is a 72 years old female with past medical history of hypertension, diabetes, breast and lung cancer, vertigo, chronic kidney disease, atrial fibrillation, tinnitus, arthritis, hyperlipidemia, came to emergency department because of dizziness for four days. The patient went to urgent care in the patient said they think she had urinary tract infection. They give her some oral antibiotic which did not help. The patient become more dizzy so the son decided to brought her to the hospital for further evaluation. The patient was admitted. The urine culture was done. The patient was put on Rocephin 1 g IV q.day. the patient doing much better today. Dizziness improved. No weakness numbness. No fever or chill. The patient will be discharged home. Advised the patient to follow up with primary care physician 1-2 weeks. Activity as tolerated. Diet per home diet. The patient will continuing oral antibiotic with Levaquin for seven more days. Physical exam: HEENT: Normocephalic atraumatic pupils equal react to light and accommodation. Extraocular muscles intact, conjunctiva pink, oropharynx moist, no thrush, no exudate. Lymphatic: No lymphadenopathy Cardiovascular exam: S1, S2 was heard. No murmurs, rubs, gallops Lung: Clear on auscultation bilaterally, no wheeze, rale, rhonchi. GI: Abdominal soft, nondistended, nontenderness, positive bowel sounds. Extremity: No crepitus, cyanosis, edema. Pedal pulses present bilateral. Full range of motion. Skin: Normal turgor, no rash. Psych: Alert, oriented x3. Neurology: No focal deficits, cranial nerve II to XII grossly intact. This medical document was created using an electronic medical record system with [employer] direct computerized dictation system. Although this document has been carefully reviewed, there may still be some phonetic and typographical errors. These areas are purely typographical due to imperfections of the software programs, and do not reflect any compromise in the patient's medical care. Condition at Discharge: Stable Final Diagnosis/Problems List Autonomic imbalance likely due to UTI Hyperkalemia Lactic acidosis rule out sepsis Hypertensive urgency Anemia Diabetes type 2 with hyperglycemia Hypertension History of breast and lung cancer History of vertigo CKD AFib History of palpitations History of tinnitus History of arthritis Hyperlipidemia History of bilateral tubal ligation History of cholecystectomy Discharge Disposition: Home Discharge Instruct/Medications Diet: Consistent carbohydrate, Cardiac 2g Na,low cholest Activity: No Restrictions, As Tolerated Follow Up/Referral: pcp 1-2 weeks Medications: Levaquin 500mg PO daily Resume home meds. Scheduled Alprazolam (Alprazolam Er), 0.5 MG PO DAILY, (Reported) Amitriptyline Hcl (Amitriptyline Hcl), 50 MG PO HS, (Reported) Amitriptyline Hcl (Elavil), 50 MG PO DAILY, (Reported) Ascorbic Acid (Vit C), 1,000 MG PO DAILY, (Reported) Benazepril Hcl (Benazepril Hcl), 5 MG PO DAILY, (Reported) Digoxin (Digoxin), 0.125 MG PO 2XW, (Reported) Folic Acid (Folic Acid), 1 MG PO DAILY, (Reported) Letrozole (Femara), 1 TAB PO DAILY, (Reported) Levofloxacin Hemihydrate (Levaquin 500 Mg), 1 TAB PO DAILY Magnesium Oxide (Magox 400), 400 MG PO DAILY, (Reported) Meclizine Hcl (Antivert Tablet), 25 MG PO PRN, (Reported) Metoprolol Succinate (Toprol Xl), 25 MG PO DAILY, (Reported) Metoprolol Tartrate (Lopressor), 1 TAB PO BID, (Reported) Multiple Vitamins W/ Minerals (Centrum), 1 PO DAILY, (Reported) [place]-3 Fatty Acids (Fish Oil), 1,400 MG PO DAILY, (Reported) Pioglitazone Hcl-Metformin Hcl (Actoplus Met), 1 TAB PO BID, (Reported) Ranitidine Hcl (Acid Control Maximum Stre), 150 MG PO BID, (Reported) Rivaroxaban (Xarelto), 1 TAB PO DAILY, (Reported) Simvastatin (Simvastatin), 20 MG PO HS, (Reported) Warfarin Sodium (Coumadin), 7 MG PO DAILY, (Reported) [Metformin [id number] Mg], 850 MG PO BID, (Reported) Miscellaneous Medications Ascorbic Acid (Vitamin C), (Reported) Cholecalciferol (Vitamin D), (Reported) Discharge Statement: "Patient was advised to return to the ER or call 911 if any headaches, dizziness, shortness of breath, chest pain, abdominal pain, bleeding, fevers, or worsening of medical condition. Patient was counseled about treatment plan, medications, possible side effects, patientverbalized understanding. All questions were answered to the best of my ability. This discharge took greater then 30 minutes in planning, reviewing documentation, counseling the patient, and discussing with other team members." ASSESSMENT ASSESSMENT Assessment uti Date of Service: Apr 22, 2025 Billing Provider: WILLIAM MCFADDEN MD Common Visit Codes: [id number] DISCH DAY >30min WILLIAM MCFADDEN MD Apr 22, 2025 12:24
== END 2025-04-22 15:57 | disposition home or self-care (01) | DRG 871 ==
LOC: ER 11:09 → OVERFLOW 16:21 → TELE-WESTW 17:44
PROVIDERS: ADMIT Internal Medicine; ATTEND Internal Medicine
DX: A41.9 Sepsis, unspecified organism (principal); N17.0 Acute kidney failure with tubular necrosis; E87.20 Acidosis, unspecified; N30.00 Acute cystitis without hematuria; G90.89 Other disorders of autonomic nervous system; D64.9 Anemia, unspecified; E11.65 Type 2 diabetes mellitus with hyperglycemia; E87.5 Hyperkalemia; I16.0 Hypertensive urgency; I48.91 Unspecified atrial fibrillation; I12.9 Hypertensive chronic kidney disease with stage 1 through stage 4 chronic kidney disease, or unspecified chronic kidney disease; N18.9 Chronic kidney disease, unspecified; E11.22 Type 2 diabetes mellitus with diabetic chronic kidney disease; E78.5 Hyperlipidemia, unspecified; Z90.49 Acquired absence of other specified parts of digestive tract; Z85.3 Personal history of malignant neoplasm of breast; Z85.118 Personal history of other malignant neoplasm of bronchus and lung; Z98.51 Tubal ligation status; Z79.899 Other long term (current) drug therapy
CPT/HCPCS: 36415; 70450; 71045; 80053; 81001; 82962; 83036; 83605; 83735; 84484; 85025; 93005; 93306; 96365; 96375; G0378; J1815